=== PATIENT | male | born 1970 | race Caucasian/White ===

== ENCOUNTER 2022-07-27 22:14 | Emergency (ER) | payer BC, OTHER ==
[~2022-07-27] VITALS: Ht 175.3 cm; Wt 70.5 kg
[2022-07-28 00:02] VITALS: BP 147/88
[2022-07-28] MEDS ORDERED: KETOROLAC TROMETH 60MG/2ML VIAL IM ONE (00:45)
[2022-07-28] MEDS ORDERED: PRED20TA2 PO (00:46)
== END 2022-07-28 00:57 | disposition home or self-care (01) ==
LOC: ER 22:14
DX: M54.12 Radiculopathy, cervical region (principal)
CPT/HCPCS: 96372; 99283; J1885